=== PATIENT | male | born 1935 | race Caucasian/White ===

== ENCOUNTER 2016-08-10 21:47 | Emergency (ER) | payer MEDICARE, OTHER ==
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
== END 2016-08-10 22:49 | disposition disaster alternative care site (69) ==
LOC: GMED 21:47
PROC: 0T2BX0Z Change Drainage Device in Bladder, External Approach (ICD-10-PCS; principal; 2016-08-10)
DX: T83.89XA Other specified complication of genitourinary prosthetic devices, implants and grafts, initial encounter (principal); I10 Essential (primary) hypertension; Z79.899 Other long term (current) drug therapy; Z98.890 Other specified postprocedural states

== ENCOUNTER 2016-08-12 23:41 | Inpatient (IN) | payer MEDICARE, OTHER ==
[~2016-08-12] VITALS: Ht 180.3 cm; Wt 82.6 kg
--- NOTE | ~2016-08-12 | DS ---
PATIENT'S NAME: KARI DEL CID [facility] AGE: 80 Y [address] ROOM: [place] [address] [place] [facility] [place] DATE: 08/13/2016 Discharge Summary DISCHARGE DATE: 08/16/2016 FAMILY PHYSICIAN: Hany Mckay MD ATTENDING PHYSICIAN: Missael Zhu DISCHARGING PHYSICIAN: Dr. Cordova, who is attending the patient on the day of discharge. CONSULTING PHYSICIAN: Dr. Roa, psychiatry. DISCHARGE DIAGNOSES: 1. Alcohol use disorder, status post detoxification. 2. Fall secondary to alcohol use disorder. 3. Scalp laceration secondary to alcohol use disorder. 4. Hypertension, essential. 5. Hypokalemia, resolved. 6. Depressive disorder. 7. Neurogenic bladder. DISCHARGE MEDICATIONS: 1. Amitriptyline 100 mg p.o. q.h.s. 2. Chlorhexidine 10 mL p.o. after meals and at bedtime rinse and spit. 3. Lexapro 10 mg p.o. daily. 4. Famotidine 20 mg p.o. twice daily. 5. Folic acid 1 mg p.o. daily. 6. Multivitamin 1 tablet p.o. daily. 7. Pravastatin 40 mg p.o. q.h.s. 8. Omnipred 5 mL 1 drop 3 times a day to the left eye. 9. Risperidone 0.25 mg p.o. q.h.s. 10. Thiamine HCl 100 mg p.o. daily. 11. Flonase 50 mcg per puff 2 sprays to the nose every day p.r.n. sinus congestion. 12. Lotrel 5/20 mg 1 capsule p.o. q.h.s. 13. Gatifloxacin 1 drop ophthalmic twice daily to the left eye. Medications held: 1. Lasix 40 mg p.o. q.h.s. 2. Potassium chloride 20 mEq p.o. q.h.s. Medications to be reviewed by PCP for resumption. HOSPITAL COURSE: Please refer to the admitting H and P dictated by Dr. Zhu. The patient was admitted and put on the detox pathway. The patient also had a tongue laceration, of which Peridex rinse was added to help manage. Parameters were put in place for his blood pressure medications. It was decided to hold the Lasix given the patient's tendency for a fall. We did PATIENT'S NAME: KARI DEL CID [facility] AGE: 80 Y [address] ROOM: [id number] [place], [place] [address] [place] [facility] [place]: 08/13/2016 Discharge Summary DISCHARGE DATE: 08/16/2016 FAMILY PHYSICIAN: Hany Mckay MD ATTENDING PHYSICIAN: Missael Zhu have Psychiatry visit with him, and they have seen the patient on 08/15/2016. Please refer to Dr. Roa's consultation. The patient was started on Lexapro for situational depression. Information was given to the patient concerning outpatient Alcoholics Anonymous and support group options. The patient is also encouraged to follow up with [facility] to continue to work with counselor. Ultimately on 08/16/2016, the patient was stable and arrangements were made for the patient to discharge home. The patient was in agreement to this plan. Once again, I reviewed issues behind his drinking including his grief and sadness about putting his into a fdc. Reinforced our suggestions for AA and follow up with psychiatric care for further counseling. The patient is in agreement to this plan. The patient is being discharged to his own home on 08/16/2016 with recommendations are to follow up with his PCP in 3 to 5 days and to follow up with [facility] for outpatient therapy arrangements also. The patient voiced understanding. Daughter was also present during review of this plan. Discharge of this patient took less than 30 minutes. Thank you for allowing us to help care for this patient. LEONEL HARTMANN PA-C FOR MD CHARLIE MAYES/jess /[id number] d: 08/17/16150 t: 08/20/161920, DISCHARGE SUMMARY
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
--- NOTE | ~2016-08-12 | CON ---
PATIENT'S NAME: KARI DEL CID [facility] AGE: 80 Y [address] ROOM: [place] [address] [place] [facility] [place]: 08/13/2016 Consultation DISCHARGE DATE: FAMILY PHYSICIAN: Hany Mckay MD ATTENDING PHYSICIAN: BIANCA MALHOTRA DATE OF CONSULTATION: 08/15/2016 REASON FOR CONSULTATION: Depressed mood and alcohol use disorder. HISTORY OF PRESENT ILLNESS: A 80-year-old male. He is admitted for recent falls and also continued usage of alcohol. Family reports that he has been depressed. His was put in a fpc in May 2016, which has been stressful for him. He has been drinking whiskey direct from the bottle on a regular basis, typically in the afternoons and evenings. Family was unaware of his amount of drinking. He has been having falls multiple times lately. 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 He is totally independent in his ADLs at home. In fact, he cooks himself. He denies any memory problems. He denies any history of seizures lately. He has been prescribed multiple medications including amitriptyline 100 mg at nighttime along with Risperdal 0.5 mg at nighttime. He does have access to guns. He has not made any statements of suicide, but family is concerned about his mood symptoms and his continued drinking. During my interview, the patient states that he is not depressed and just needs to quit drinking. He also denies any memory problems. He says he has been sleeping and eating well. He says he relaxes himself by drinking alcohol. He is trying to cut down the drinking and in fact stop drinking. He says that losing his to having been placed in a fpc is a big stressor for him. PREVIOUS PSYCHIATRIC HISTORY: None. No previous suicide attempts. MEDICAL HISTORY: Hypertension. 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 He has been falling down lately. SUBSTANCE USE HISTORY: Drinking alcohol. Believes in drinking more and more excessively lately. Denies use of drugs. SOCIAL HISTORY: He lives by himself in [place], [place]. He is still doing farming. He has PATIENT'S NAME: KUEBLER, KARI W [facility] AGE: 80 Y [address] ROOM: [address] [place], [place] [address] [place] [facility] [place]: 08/13/2016 Consultation DISCHARGE DATE: FAMILY PHYSICIAN: Hany Mckay MD ATTENDING PHYSICIAN: BIANCA MALHOTRA 3 daughters. MENTAL STATUS EXAMINATION: A 80-year-old male who is awake and alert. His thought process is linear. He is minimizing on his symptoms. Mood is anxious. Affect is constricted. He denies any thoughts of suicide or homicide. He denies any hallucinations or delusions. Does not seem to be overtly confused at this time. ASSESSMENT: 1. Depressive disorder, not elsewhere classified. 2. Alcohol use disorder, moderate to severe. 3. Falls. 4. 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 5. Neurogenic bladder. 6. Hypertension. PLAN: He will continue with meds. The amitriptyline could be lowered and could be discontinued if needed. He will be continuing with the Risperdal. Unsure the reason for Risperdal, but I believe that could be because of his agitation. Ideally, he should go to a controlled setting like a fpc or an assisted living place, but the patient is not interested in going there. He does have his daughters as power of contracts attorney. The patient also has been drinking alcohol. For temporarily I believe at least, sending him to a correction facility might be an option because of his falls and continued weakness. He could benefit with Remeron if needed in lieu of amitriptyline for any problems with sleep. If he is being discharged back to home, he might need outpatient counseling. He thinks that he could come and see a counselor in [place], [place]. Family believes that could be a possibility. Overall, at this time, an ideal place would be for him to stay in a controlled setting, but the family is to decide amongst themselves as they are the power of attorneys to place him elsewhere. Please give me a call if you have any questions. Dr. Franco will follow up from tomorrow. MD JOYCE LUCAS/jess /[id number] d: 08/15/16 1434 t: 08/23/16 0824, CONSULTATION REPORT
[2016-08-13 00:13] LABS: BASOPHIL % 0.4 %; HEMATOCRIT 46.3 % (37.0-53.0); HEMOGLOBIN 16.3 g/dL (11.0-16.0); IMMATURE GRANULOCYTE # 0.1 K/uL (0.0-0.3); IMMATURE GRANULOCYTE % 0.6 %; LYMPHOCYTE # 1.1 K/uL (0.8-4.0); LYMPHOCYTE % 11.2 %; MCH 34.2 pg (27.0-34.0); MCHC 35.2 gm/dL (32.0-36.5); MCV 97.3 fl (83.0-98.0); MONOCYTE # 0.5 K/uL (0.0-1.0); MONOCYTE % 4.9 %; MPV 9.9 fl (9.4-12.4); NEUTROPHIL # (ANC) 8.1 K/uL (1.4-9.0); NEUTROPHIL % 82.9 %; NRBC % 0 /100WBC (0-0.00); PLATELET COUNT 269 K/uL (150-450); RBC 4.76 M/uL (3.50-5.50); RDW-CV 12.6 % (11.9-14.6); WBC 9.8 K/uL (4.0-11.0)
[2016-08-13 00:29] LABS: ALK PHOS 175 IU/L (33-138); ALT 57 IU/L (12-78); AST 131 IU/L (10-40); BLOOD UREA NITROGEN 12 mg/dL (6-24); CHLORIDE 91 mMol/L (96-110); CO2 27 mMol/L (22-32); CREATININE 0.8 mg/dL (0.6-1.3); ESTIMATED GFR (MDRD EQUATION) > 60; SODIUM 132 mMol/L (135-145); TOTAL BILIRUBIN 0.6 mg/dL (0.0-1.5); TOTAL PROTEIN 8.5 g/dL (6.0-8.4)
[2016-08-13 01:50] LABS: BILIRUBIN URINE NEGATIVE (NEGATIVE); BLOOD URINE 250 /UL (NEGATIVE); COLOR URINE YELLOW (YELLOW); GLUCOSE URINE NEGATIVE (NEGATIVE); KETONE URINE NEGATIVE (NEGATIVE); LEUKOCYTES URINE 100 /UL (NEGATIVE); NITRITE URINE NEGATIVE (NEGATIVE); PROTEIN URINE NEGATIVE (NEGATIVE); TURBIDITY URINE CLEAR (CLEAR); UROBILINOGEN URINE NORMAL (NORMAL)
[2016-08-13 02:01] LABS: BACTERIA URINE MANY (NEGATIVE); WBC CLUMPS URINE FEW (NEGATIVE)
[2016-08-13 02:05] LABS: AMPHETAMINE NEGATIVE (NEGATIVE); BARBITURATE NEGATIVE (NEGATIVE); COCAINE NEGATIVE (NEGATIVE); OPIATES NEGATIVE (NEGATIVE)
[2016-08-13 08:08] LABS: HEMATOCRIT 40.7 % (37.0-53.0); HEMOGLOBIN 14.6 g/dL (11.0-16.0); MCH 34.9 pg (27.0-34.0); MCHC 35.9 gm/dL (32.0-36.5); MCV 97.4 fl (83.0-98.0); RBC 4.18 M/uL (3.50-5.50); RDW-CV 12.7 % (11.9-14.6)
[2016-08-13 08:23] LABS: INR - (THERAPEUTIC) 0.97 (0.92-1.07); PROTIME 10.2 SECONDS (9.8-11.4)
[2016-08-13 08:30] LABS: ALBUMIN 3.4 gm/dL (3.5-5.0); ALK PHOS 144 IU/L (33-138); ALT 53 IU/L (12-78); AST 115 IU/L (10-40); BLOOD UREA NITROGEN 11 mg/dL (6-24); CALCIUM 8.4 mg/dL (8.5-10.5); CHLORIDE 95 mMol/L (96-110); CO2 30 mMol/L (22-32); CREATININE 0.6 mg/dL (0.6-1.3); ESTIMATED GFR (MDRD EQUATION) > 60; MAGNESIUM 1.8 mg/dL (1.8-2.6); PHOSPHORUS 2.7 mg/dL (2.5-4.9); SODIUM 136 mMol/L (135-145); TOTAL BILIRUBIN 0.6 mg/dL (0.0-1.5); TOTAL PROTEIN 7.3 g/dL (6.0-8.4)
[2016-08-13] MEDS ORDERED: AMITRIPTYLINE100 MG PO (12:03)
[2016-08-13] MEDS ORDERED: PRAVACHOL40 MG PO (12:03)
[2016-08-13] MEDS ORDERED: FLONASE 50 MCG/16 GM NOSE (12:03)
[2016-08-13] MEDS ORDERED: LASIX40 MG PO (12:05)
[2016-08-13] MEDS ORDERED: K-TAB ER20 MEQ PO (12:06)
[2016-08-13] MEDS ORDERED: RISPERDAL0.25 MG PO (12:06)
[2016-08-13] MEDS ORDERED: LOTREL 5-20 MG1 EACH PO (12:06)
[2016-08-13] MEDS ORDERED: OMNIPRED5 ML OPHTH (12:07)
[2016-08-13] MEDS ORDERED: GATIFLOXACIN2.5 ML OPHTH (12:07)
[2016-08-14 05:13] LABS: ANION GAP 12.7 (10.0-19.0); BLOOD UREA NITROGEN 14 mg/dL (6-24); CALCIUM 8.4 mg/dL (8.5-10.5); CHLORIDE 95 mMol/L (96-110); CO2 31 mMol/L (22-32); CREATININE 0.6 mg/dL (0.6-1.3); ESTIMATED GFR (MDRD EQUATION) > 60; PHOSPHORUS 2.1 mg/dL (2.5-4.9); POTASSIUM 3.7 mMol/L (3.7-5.1); SODIUM 135 mMol/L (135-145)
[2016-08-15 05:07] LABS: BASOPHIL % 0.8 %; HEMATOCRIT 39.8 % (37.0-53.0); HEMOGLOBIN 13.8 g/dL (11.0-16.0); IMMATURE GRANULOCYTE % 0.4 %; LYMPHOCYTE # 1.2 K/uL (0.8-4.0); LYMPHOCYTE % 23.4 %; MCH 34.3 pg (27.0-34.0); MCHC 34.7 gm/dL (32.0-36.5); MONOCYTE # 0.5 K/uL (0.0-1.0); MONOCYTE % 9.2 %; MPV 10.1 fl (9.4-12.4); NEUTROPHIL # (ANC) 3.5 K/uL (1.4-9.0); NEUTROPHIL % 66.2 %; NRBC % 0 /100WBC (0-0.00); PLATELET COUNT 210 K/uL (150-450); RBC 4.02 M/uL (3.50-5.50); RDW-CV 12.7 % (11.9-14.6); WBC 5.2 K/uL (4.0-11.0)
[2016-08-15 05:24] LABS: ALK PHOS 138 IU/L (33-138); ALT 37 IU/L (12-78); AST 57 IU/L (10-40); BLOOD UREA NITROGEN 18 mg/dL (6-24); CALCIUM 8.9 mg/dL (8.5-10.5); CHLORIDE 96 mMol/L (96-110); CO2 32 mMol/L (22-32); CREATININE 0.7 mg/dL (0.6-1.3); ESTIMATED GFR (MDRD EQUATION) > 60; PHOSPHORUS 2.8 mg/dL (2.5-4.9); SODIUM 136 mMol/L (135-145); TOTAL BILIRUBIN 0.7 mg/dL (0.0-1.5); TOTAL PROTEIN 6.9 g/dL (6.0-8.4)
[2016-08-16 05:36] LABS: HEMATOCRIT 37.6 % (37.0-53.0); HEMOGLOBIN 13.1 g/dL (11.0-16.0)
[2016-08-16 05:46] LABS: ANION GAP 12.2 (10.0-19.0); BLOOD UREA NITROGEN 19 mg/dL (6-24); CALCIUM 8.8 mg/dL (8.5-10.5); CHLORIDE 98 mMol/L (96-110); CO2 30 mMol/L (22-32); CREATININE 0.6 mg/dL (0.6-1.3); ESTIMATED GFR (MDRD EQUATION) > 60; MAGNESIUM 2.2 mg/dL (1.8-2.6); PHOSPHORUS 3.4 mg/dL (2.5-4.9); POTASSIUM 4.2 mMol/L (3.7-5.1); SODIUM 136 mMol/L (135-145)
[2016-08-16] MEDS ORDERED: PERIDEX15 ML PO (17:16)
[2016-08-16] MEDS ORDERED: LEXAPRO10 MG PO (17:17)
[2016-08-16] MEDS ORDERED: PEPCID20 MG PO (17:17)
[2016-08-16] MEDS ORDERED: THERAGRAN-M1 TAB PO (17:19)
[2016-08-16] MEDS ORDERED: FOLIC ACID1 MG PO (17:19)
[2016-08-16] MEDS ORDERED: THIAMINE HCL100 MG PO (17:21)
== END 2016-08-16 18:25 | disposition disaster alternative care site (69) | DRG 897 ==
LOC: GACC 23:41 → GMSU 08-13 02:32
PROVIDERS: Emergency Medicine; Nurse Practitioner Family; Student in an Organized Health Care Education/Training Program; ADMIT Internal Medicine
PROC: HZ2ZZZZ Detoxification Services for Substance Abuse Treatment (ICD-10-PCS; principal; 2016-08-13)
DX: F10.24 Alcohol dependence with alcohol-induced mood disorder (principal); G82.20 Paraplegia, unspecified; F10.229 Alcohol dependence with intoxication, unspecified; E87.6 Hypokalemia; F32.9 Major depressive disorder, single episode, unspecified; I10 Essential (primary) hypertension; N31.9 Neuromuscular dysfunction of bladder, unspecified; R40.4 Transient alteration of awareness; R29.6 Repeated falls; S01.01XA Laceration without foreign body of scalp, initial encounter; W19.XXXA Unspecified fall, initial encounter; S01.512A Laceration without foreign body of oral cavity, initial encounter
CPT/HCPCS: G0480; J3411; J3480; J7030; J7050; Q9967